=== PATIENT | male | born 2000 | race Caucasian/White ===

== ENCOUNTER → 2019-03-28 08:44 | Outpatient (CLI) | payer BC, SELFPAY ==
--- NOTE | 2019-03-28 08:47 | RAD_ITS ---
STUDY: X-RAY - LEFT ANKLE REASON FOR EXAM: Male, 18 years old. Fracture. TECHNIQUE: 3 view(s) of the ankle. COMPARISON: None. FINDINGS: The medial malleolus has a truncated appearance. There are 8mm and 5 mm rounded calcifications inferior to the medial malleolus. These findings might represent a normal variant or might represent nonunion of an old fracture, with partial resorption of nonfused bone fracture fragments. Otherwise normal visualized distal tibia and fibula. Normal lateral malleolus.. Normal tibiotalar articulation and ankle mortise. Normal visualized talus and calcaneus. The visualized subtalar, talonavicular, calcaneocuboid and tarsal articulations are normal. There is nonspecific soft tissue swelling. RAD/Ankle min 3 Views IMPRESSION: Appearance of the medial malleolus may represent a normal variant or might represent nonunion of an old fracture, with partial resorption of nonfused fracture fragments. No demonstrated acute fracture, dislocation, or destructive osseous lesion. Electronically Signed: Nils Esqueda MD at 8:02 EDT , Service support ,
== END ==
PROVIDERS: Family Provider Family Medicine; PCP Family Medicine; Referring Provider Orthopaedic Surgery; Visit Provider Orthopaedic Surgery
DX: S82.52XA Displaced fracture of medial malleolus of left tibia, initial encounter for closed fracture (principal); X58.XXXA Exposure to other specified factors, initial encounter; Y93.9 Activity, unspecified; Y92.9 Unspecified place or not applicable; Y99.9 Unspecified external cause status
CPT/HCPCS: 73610

== ENCOUNTER 2019-04-20 17:30 | Outpatient (RCR) | payer BC, SELFPAY ==
--- NOTE | 2019-03-28 13:33 | HP.PTEVAL ---
Patient's Visit Information DEBI HITCHCOCK is a 18 year old M referred to Physical Therapy by Robbi Montemayor DO with a diagnosis of L med malleolus Fx. Date of Evaluation: 03/28/19 Physical Therapist: GABRIELLA Paz - Visit Plan Frequency: 1-2x /Week Duration: 4 Weeks Plan: orders are for 1 week in boot FWB and then walking with a supportive shoe FWB X 2 weeks. 1-2X/ week for 4 weeks with HEP ( per pt request) for gait training, L ankle AROM, stretching, strengthening, balance and proprioception activities with HEP and modailites as needed. - Subjective Findings: Pt fell rock climbing 5 weeks ago. I was in a boot for 5 weeks and crutches NWB and was told this morning that he can start walking with boot on and FWB X 1 weeks and was told to go to PT. took x-rays this morning. His swelling is still there. He walked on it for the first time from the Dr office to here. He reported that it hurt slightly (3-4/10) initially and now it is about 2/10 to walk on it. He is a [facility] [employer] They start April 12. He has not tried stairs. He has stairs at his home with a railing. He has been driving all along. He is sleeping ok. He will return back to Dr in 4 weeks but said to call if he is 100% and swelling is down by then. - Pain L ankle pain Pain Intensity (Out of 10): 2 - Objective Gait: walks with a walking boot on on the L foot with quite antalgic gait and decreased stance time on the L foot. L Ankle AROM: DF 20, PF 24, 4 INV, 5 EV. R ankle AROM: 20, 50, 20, 17. L ankle girth 25, 54.5, 24. R ankle girth 26.5, 54, 23 - Goals Goal 1:: I HEP Goal Time Frame: 4-6 Weeks Goal 2:: Increase L ankle AROM to equal that of the Right Goal Time Frame: 4-6 Weeks Goal 3:: Walk without the boot without antalgic gait Goal Time Frame: 4-6 Weeks Goal 4:: Icnrease L ankle strength to 4/5 by DC Goal Time Frame: 4-6 Weeks - Rehabilitation Potential Rehabilitation Potential: Good - Anticipated Interventions Patient/Client Instruction: Educate patient on: Condition, Plan of Care For the Purpose of:: To decrease pain, To decrease swelling/inflammation, To increase ROM, To improve nutrient delivery to tissue, To improve muscle performance and motor function, To improve ability to perform ADL's, To increase tolerance to activity/condition/position, To improve performance and independence with ADL's, To decrease level of supervision to perform tasks, To improve ability of physical actions for home/community/work/leisure, To improve gait and locomotor functions, To improve health of tissue, To decrease soft tissue restriction, To increase flexibility/ROM, To improve balance, To improve safety with gait Therapeutic Exercise to Include: Strength training, Balance training, Flexibilty training, Gait and locomotor training, Passive ROM, Active ROM For the Purpose of:: To decrease pain, To decrease swelling/inflammation, To improve muscle performance and motor function, To improve ability to perform ADL's, To increase tolerance to activity/condition/position, To improve performance and independence with ADL's, To improve gait and locomotor functions, To improve health of tissue, To decrease soft tissue restriction, To increase flexibility/ROM, To improve balance Functional Training to Include: Gait training For the Purpose of:: To improve gait and locomotor functions Manual Therapy Techniques to Include: Passive ROM For the Purpose of:: To increase ROM IF ES: Yes Cryotherapy (ice pack, ice massage): Yes For the Purpose of:: To decrease swelling/inflammation, To increase ROM, To improve nutrient delivery to tissue Thank you for the opportunity to evaluate your patient. For Medicare and Medicare HMO plans, please review the plan of care and approve it. It will need to be FAXED BACK to us at [phone] for Medicare purposes. For Medicare only, by signing this I certify the plan of care. Please let me know if there are questions or concerns regarding this plan of care. Physician Signature: Date:
--- NOTE | 2019-06-06 15:55 | HP.PTDCSUM ---
HP - PT D/C Summary It has been my pleasure to treat DEBI HITCHCOCK under orders from Robbi Montemayor DO, for the diagnosis of L med malleolus Fx for a total of 4 visit(s). Discharge Date: 06/06/19 Please see the following information for a summary of their discharge status. - Subjective Subjective: No real pain... just stiffness. He has morning stiffness in AM compared to evening. Also going down the stairs.... never pain or sharp pain. - Pain L ankle pain Pain Intensity (Out of 10): 2 - Objective Objective/Function: Gait: walks with ever so slight antalgic gait.... Stairs: able to go up and down recip with out a hand rail but some signs of stifness when descending the stairs. AROM: DF 18 degrees L and 17 degrees R. Pt is able to single heel raise X 10 but has some weakness present. - Goals Goal 1:: I HEP Goal Progress: Goal Met Goal 2:: Increase L ankle AROM to equal that of the Right Goal Progress: Goal Met Goal 3:: Walk without the boot without antalgic gait Goal Progress: Progressing Goal 4:: Icnrease L ankle strength to 4/5 by DC Goal Progress: Goal Met - Plan Plan: Hold chart X 2 weeks (pt will call in and let us know if stiffness in the ankle is resolving). HEP: blue t-band 4 way, single leg balance and heel raises, leg press ( at school gym), stretching of gastroc, - D/C Information Discharge Comments: DC PT If there are questions or concerns regarding this patient's physical therapy, please feel free to call me at [phone]. Thank you for the referral of this patient. Sincerely, Michell Wilkins, MPT
== END 2019-04-20 19:00 | disposition home or self-care (01) ==
LOC: PT 17:30
PROVIDERS: Family Provider Family Medicine; PCP Family Medicine; Referring Provider Orthopaedic Surgery; Visit Provider Orthopaedic Surgery
DX: S82.52XD Displaced fracture of medial malleolus of left tibia, subsequent encounter for closed fracture with routine healing (principal)
CPT/HCPCS: 97110; 97161; 97530